=== PATIENT | male | born 1950 | race Caucasian/White ===

== ENCOUNTER 2017-11-25 06:38 | Day surgery (SDC) | payer MEDICARE, OTHER ==
[~2017-11-25] VITALS: Ht 170.2 cm; Wt 84.1 kg
[~2017-11-25 06:38] MED LIST: 00186-0370-20 IH; ADVAIR 100/28 DISKU1 IH; AZATHIOPRINE50 MG PO; BENADRYL25 M2 PO; CLARITIN 1010 MG/TAB PO; FOLIC ACID0.4 MG PO; IMURAN 50MG TAB50 MG PO; IRON325 M1 PO; MUCOMYST IH; NAC600 MG PO; NORCO 325 MG-51 TAB PO; NORCO 325 MG-7.1 TAB PO; PREDNISONE10 MG PO; PREDNISONE20 MG PO; PROTONIX 40MG T40 MG PO; ROXICODONE 55 MG/TAB PO; SEPTRA DS 8001 TAB PO; SULFAMETH/TRIME1 TA2 PO; SULFAMETHOXAZOLE PO; SUPER EPA 1201200 MG PO; TRIMETHOPRIM PO; TYLENOL 325MG325 MG PO; TYLENOL 500MG500 MG PO; VENTOLIN0.09 MG IH; VITAMIN C500 MG PO; XARELTO10 MG PO; ZANTAC 150MG T150 MG PO; ZYRTEC10 MG PO
[2017-11-25 06:58] VITALS: BP 114/78; PULSE 76; TEMP 97.8
[2017-11-25] MEDS ORDERED: PREDNISONE10 MG PO (07:40)
[2017-11-25] MEDS ORDERED: COZAAR 50MG50 MG/TAB PO (07:41)
[2017-11-25] MEDS ORDERED: [UNRECOGNIZED DRUG - OTHER] PO (07:46)
[2017-11-25 08:20] VITALS: BP 99/70; PULSE 76; TEMP 97.5
[2017-11-25 08:30] VITALS: BP 103/72; PULSE 68
[2017-11-25 08:45] VITALS: BP 111/80; PULSE 64
[2017-11-25 09:00] VITALS: BP 107/72; PULSE 59
[2017-11-25 09:15] VITALS: BP 113/73; PULSE 57
== END 2017-11-25 09:30 | disposition home or self-care (01) ==
LOC: SDCO 06:38
DX: Z12.11 Encounter for screening for malignant neoplasm of colon (principal); D12.0 Benign neoplasm of cecum; K57.30 Diverticulosis of large intestine without perforation or abscess without bleeding; D12.5 Benign neoplasm of sigmoid colon; J84.10 Pulmonary fibrosis, unspecified; I10 Essential (primary) hypertension; G47.33 Obstructive sleep apnea (adult) (pediatric); C44.90 Unspecified malignant neoplasm of skin, unspecified
CPT/HCPCS: OP; J2704; J7120

== ENCOUNTER 2018-03-23 09:30 | Emergency (ER) | payer MEDICARE, OTHER ==
[~2018-03-23] VITALS: Ht 170.2 cm; Wt 81.8 kg
[~2018-03-23 09:30] MED LIST changes: +COZAAR 50MG50 MG/TAB PO; +[UNRECOGNIZED DRUG - OTHER] PO
[2018-03-23 09:42] VITALS: BP 117/77; TEMP 97.2
[2018-03-23] MEDS ORDERED: IMURAN 50MG TAB50 MG PO (10:02)
[2018-03-23 10:03] LABS: BASO # 0.1 (0.0-0.2); BASO % 0.4 % (0.0-2.0); EOS # 0.3 (0.0-0.7); EOS % 2.9 % (0-4.0); GRAN # 7.5 (1.4-6.5); GRAN % 65.8 % (42.2-75.2); HEMOGLOBIN 15.6 g/dl (13.5-18.0); LYMPH # 2.4 (1.2-3.4); LYMPH % 21.2 % (20.0-51.0); MEAN CELL VOLUME 95 fl (80.0-100.0); MEAN CORPUSCULAR HEMOGLOBIN 32 pg (27.0-31.0); MEAN CORPUSCULAR HGB CONC 33 g/dl (33.0-37.0); MEAN PLATELET VOLUME 10.2 fl (7.4-10.4); MONO # 1.1 (0.1-0.6); MONO % 9.3 % (1.7-9.3); PLATELET COUNT 237 K/mm3 (130-400); RED BLOOD COUNT 4.94 M/mm3 (4.20-5.60); REDCELL DISTRIBUTION WIDTH-CV 14.3 % (11.5-14.5)
[2018-03-23 10:08] LABS: ALANINE AMINOTRANSFERASE 28 U/L (21-72); ALBUMIN 4.5 gm/dL (3.5-5.0); ALKALINE PHOSPHATASE 47 U/L (50-136); ANION GAP 8 mmol/L (7-16); AST,SGOT 24 U/L (15-37); BILIRUBIN,TOTAL 0.5 mg/dL (0.0-1.0); BLOOD UREA NITROGEN 19 mg/dL (9-20); CALCIUM 9.3 mg/dL (8.4-10.2); CARBON DIOXIDE 28 mmol/L (22-30); CHLORIDE 104 mmol/L (98-107); CREATININE, serum 0.98 mg/dL (0.66-1.25); GLUCOSE 98 mg/dL (74-106); SODIUM 140 mmol/L (137-145); TOTAL PROTEIN 7.9 gm/dL (6.4-8.2)
[2018-03-23 10:20] LABS: TROPONIN-I < 0.012 ng/mL (0.000-0.034)
[2018-03-23 12:00] VITALS: PULSE 75
== END 2018-03-23 12:00 | disposition home or self-care (01) ==
LOC: COL.ER 09:30
PROVIDERS: Emergency Medicine
DX: J93.9 Pneumothorax, unspecified (principal); Z98.890 Other specified postprocedural states

== ENCOUNTER → 2018-03-27 | Outpatient (CLI) | payer MEDICARE, OTHER | LOC: COL.RAD 11:02 | DX: J93.9 Pneumothorax, unspecified (principal); Z97.8 Presence of other specified devices ==

== ENCOUNTER → 2018-03-31 | Outpatient (CLI) | payer MEDICARE, OTHER | LOC: COL.RAD 12:50 | DX: J93.83 Other pneumothorax (principal); Z97.8 Presence of other specified devices ==

== ENCOUNTER 2018-04-04 11:13 | Emergency (ER) | payer MEDICARE, OTHER ==
[~2018-04-04] VITALS: Ht 170.2 cm; Wt 81.8 kg
[2018-04-04 12:18] VITALS: BP 160/82; PULSE 74; TEMP 97.4
== END 2018-04-04 12:18 | disposition home or self-care (01) ==
LOC: COL.ER 11:13
DX: J93.9 Pneumothorax, unspecified (principal)
CPT/HCPCS: 4181

== ENCOUNTER 2021-04-08 09:50 | Inpatient (IN) | payer MEDICARE, OTHER ==
[2021-04-08] VITALS (254 sets, daily range): BP systolic 123; BP diastolic 88; PULSE 90–97; TEMP 97.8–99; O2SAT 72–100
[~2021-04-08] VITALS: Ht 172.7 cm; Wt 92.8 kg
[2021-04-08 10:29] LABS: BASO % 0.2 % (0.0-2.0); GRAN # 5.3 K/mm3 (1.4-6.5); HEMATOCRIT 41.9 % (42.0-52.0); HEMOGLOBIN 14.4 g/dl (13.5-18.0); LYMPH # 0.3 K/mm3 (1.2-3.4); LYMPH % 5.7 % (20.0-51.0); MEAN CELL VOLUME 86 fl (80.0-100.0); MEAN CORPUSCULAR HEMOGLOBIN 30 pg (27.0-31.0); MEAN CORPUSCULAR HGB CONC 34 g/dl (33.0-37.0); MEAN PLATELET VOLUME 10.3 fl (7.4-10.4); MONO # 0.3 K/mm3 (0.1-0.6); MONO % 5.4 % (1.7-9.3); PLATELET COUNT 163 K/mm3 (130-400); RED BLOOD COUNT 4.87 M/mm3 (4.20-5.60); REDCELL DISTRIBUTION WIDTH-CV 14.9 % (11.5-14.5)
[2021-04-08 10:43] LABS: ALBUMIN 3.6 gm/dL (3.4-4.8); BILIRUBIN,TOTAL 0.5 mg/dL (0.2-1.2); C-REACTIVE PROTEIN 3.36 mg/dL (0.00-0.50); CALCIUM 7.6 mg/dL (8.4-10.2); CREATININE, serum 1.19 mg/dL (0.72-1.25); POTASSIUM 4.6 mmol/L (3.5-4.5); TOTAL PROTEIN 6.9 gm/dL (6.2-8.1)
[2021-04-08 10:49] LABS: TROPONIN-I 0.016 ng/mL (0.00-0.033)
[2021-04-08 11:02] LABS: ARTERIAL BLD GAS O2 SATURATION 93.8 % (92-100); ARTERIAL BLD GAS TCO2 CT 20.4; ARTERIAL BLOOD GAS BASE EXCESS -2.9 (-2-2); ARTERIAL BLOOD GAS HCO3 19.5 meq/L (22-26); ARTERIAL BLOOD GAS PCO2 28.3 mmHg (35-45); ARTERIAL BLOOD GAS PO2 60.8 mmHg (80-100); ARTERIAL BLOOD GAS pH 7.46 (7.35-7.45)
--- NOTE | 2021-04-08 14:50 | NUR ---
PT ADMITTED FROM ED WITH COVID. PT IS [id number]. PT STOOD AND TURNED FROM GURNEY TO BED. PT ON BIPAP 16/10 AT 80%. PT IS SR ON TELE. PTS VSS. PT ORIENTED TO ROOM AND CALL LIGHT. PT INSTRUCTED TO CALL WITH ALL NEEDS. 1510-MESSAGE LEFT FOR PT'S TO NOTIFY OF ADMISSION. 1545-CALL TO REGARDING CODE STATUS AND PT'S REFUSAL OF REMDESIVIR. ORDER RECEIVED TO DC REMDESIVIR AND STATES HE WILL PLACE CODE STATUS.
[2021-04-08] MEDS ORDERED: COZAAR 50MG50 MG/TAB PO (15:00)
[2021-04-08] MEDS ORDERED: PRILOSEC 20MG20 MG PO (15:00)
[2021-04-08] MEDS ORDERED: DOXYCYCLINE 10100 MG PO (15:02)
[2021-04-08] MEDS ORDERED: FOSAMAX 70MG TA70 MG PO (15:03)
[2021-04-09] VITALS (215 sets, daily range): BP systolic 106–152; BP diastolic 79–90; PULSE 77–115; TEMP 98–101.2; O2SAT 73–99
[2021-04-09 03:44] LABS: ARTERIAL BLD GAS O2 SATURATION 94.9 % (92-100); ARTERIAL BLD GAS TCO2 CT 17.8; ARTERIAL BLOOD GAS BASE EXCESS -6.6 (-2-2); ARTERIAL BLOOD GAS HCO3 16.9 meq/L (22-26); ARTERIAL BLOOD GAS PCO2 28.9 mmHg (35-45); ARTERIAL BLOOD GAS PO2 73.4 mmHg (80-100); ARTERIAL BLOOD GAS pH 7.39 (7.35-7.45)
[2021-04-09 05:50] LABS: BASO % 0.1 % (0.0-2.0); GRAN # 6.4 K/mm3 (1.4-6.5); GRAN % 88.9 % (42.2-75.2); HEMATOCRIT 42.3 % (42.0-52.0); HEMOGLOBIN 14.4 g/dl (13.5-18.0); LYMPH # 0.5 K/mm3 (1.2-3.4); LYMPH % 6.3 % (20.0-51.0); MEAN CELL VOLUME 88 fl (80.0-100.0); MEAN CORPUSCULAR HEMOGLOBIN 30 pg (27.0-31.0); MEAN CORPUSCULAR HGB CONC 34 g/dl (33.0-37.0); MEAN PLATELET VOLUME 10.2 fl (7.4-10.4); MONO # 0.3 K/mm3 (0.1-0.6); MONO % 4.3 % (1.7-9.3); PLATELET COUNT 142 K/mm3 (130-400); REDCELL DISTRIBUTION WIDTH-CV 15.2 % (11.5-14.5)
[2021-04-09 06:15] LABS: CALCIUM 7.2 mg/dL (8.4-10.2); CREATININE, serum 1.24 mg/dL (0.72-1.25); POTASSIUM 4.8 mmol/L (3.5-4.5)
--- NOTE | 2021-04-09 06:27 | NUR ---
PT A/O X4. FEBRILE OVERNIGHT WITH TACHYCARDIA, TACHYPNEA, CHILLS, AND SHIVERING. NOTIFIED DANTE GALLO PT HAD ALREADY RECEIVED TYLENOL FOR DISCOMFORT. ORDERS FOR IBUPROFEN 400 MG PO ONE TIME NOW. ON REASSESSMENT AFTER 1 HOUR, TEMP 101.3 BUT CHILLS AND SHIVERING RESOLVED.TORB NS 75ML/HR AT 0300 TEMP 100.4, TACHYCARDIA AND TACHYPNEA IMPROVING. AT 0430 TEMP 98.6, WITH HEART RATE 90'S, RESP 27-30. PT TOLERATING BIPAP BUT COMPLAINS OF DRY MOUTH. FREQUENT DRINKS OF GATORADE GIVEN WITH ASSITANCE. PT HAD 2 SMALL BM. UPDATES GIVEN TO , SUSANNAH MORENO. RESTING IN BED WITH CALL LIGHT IN REACH.
--- NOTE | 2021-04-09 07:00 | NUR ---
PT RESTING IN BED. PT ON BIPAP. WILL CONTINUE TO MONITOR.
--- NOTE | 2021-04-09 19:00 | NUR ---
Received report from ASHUTOSH Sepulveda.
[2021-04-09 20:03] LABS: ARTERIAL BLD GAS O2 SATURATION 82.8 % (92-100); ARTERIAL BLOOD GAS BASE EXCESS -9.1 (-2-2); ARTERIAL BLOOD GAS PO2 49.3 mmHg (80-100)
--- NOTE | 2021-04-09 20:30 | NUR ---
RT at patient bedside at approximately 1930. At that time, patient experienced a coughing episode. Patient stated to RT, Alia, that, "it felt like something tore." Alia notified this RN, who then notified Sierra, hospitalist. Sierra requested LUCINDA be consulted. Received orders from Dr. Murphy, LUCINDA physician, for STAT ABG and chest xray. Results forwarded to both Sierra and Dr. Murphy. Sierra at bedside at approximately 1999. Intubation versus comfort care was discussed with patient. Patient ultimately decided to persue comfort care. Sierra notified family. This RN contacted [employer] mary per the patient's request.
--- NOTE | 2021-04-09 22:15 | NUR ---
Card Services Specialist was called to the room. Card Services Specialist prayed with family and offered comfort. No other needs right now.
--- NOTE | 2021-04-09 22:42 | NUR ---
Time of declared at 2241 by Sierra hospitalist.
--- NOTE | 2021-04-10 00:45 | NUR ---
Patient sent with home at this time. All patient belongings previously sent home with family.
== END 2021-04-10 00:45 | disposition expired | DRG 177 ==
LOC: COL.ER 09:50 → MEDICAL 11:32 → ICU 15:46
PROVIDERS: Emergency Medicine; Internal Medicine Critical Care Medicine; Internal Medicine Sleep Medicine; Physician Assistant; ADMIT Internal Medicine
PROC: 5A09357 Assistance with Respiratory Ventilation, Less than 24 Consecutive Hours, Continuous Positive Airway Pressure (ICD-10-PCS; principal; 2021-04-08)
DX: U07.1 COVID-19 (principal); J96.21 Acute and chronic respiratory failure with hypoxia; J12.82 Pneumonia due to coronavirus disease 2019; E87.1 Hypo-osmolality and hyponatremia; E87.2 Acidosis; J84.10 Pulmonary fibrosis, unspecified; E87.5 Hyperkalemia; E83.51 Hypocalcemia; K21.9 Gastro-esophageal reflux disease without esophagitis; I10 Essential (primary) hypertension; Z96.652 Presence of left artificial knee joint; I27.21 Secondary pulmonary arterial hypertension
CPT/HCPCS: 99223-AI; 99233-AI; 99239; J1100; J1650; J1940; J1956; J2060; J2270; J7030; J7500; Q9967